=== PATIENT | female | born 1985 | race Caucasian/White ===

== ENCOUNTER 2016-06-05 07:33 | Emergency (ER) | payer BC ==
[~2016-06-05] VITALS: Ht 165.1 cm; Wt 85.8 kg
[~2016-06-05 07:33] MED LIST: ALBU1AER INH; AMOX500T PO; CARV12.52 PO; DUONI NEB; HYDR50TA15 PO; LISI-360 PO; PRED20 PO; SPIR25TA PO
[2016-06-05 07:39] VITALS: BP 115/72; PULSE 90; RESP 18; TEMP 98.7; O2SAT 94
[2016-06-05] MEDS ORDERED: HYDR50TA15 PO (07:48)
[2016-06-05] MEDS ORDERED: ALBU.5I NEB (07:48)
[2016-06-05] MEDS ORDERED: SPIR25TA PO (07:48)
[2016-06-05] MEDS ORDERED: VENTAER INH (07:48)
[2016-06-05] MEDS ORDERED: CARV12.52 PO (07:48)
[2016-06-05] MEDS ORDERED: LISI10TA3 PO (07:48)
--- NOTE | 2016-06-05 08:08 | PD ---
HPI Chief Complaint: Respiratory Symptoms Time Seen by Provider: 07:54 Travel History International Travel<30 days: No Contact w/Intl Traveler<30days: No Traveled to known affect area: No History of Present Illness HPI This is a 31-year-old female with a history of asthma and cardiomyopathy who presents to the emergency department with 3-4 days of increasing shortness of breath and productive cough with yellow sputum, constant , moderate severity, worse in the evenings, associated with some subjective fevers and chills. She has been hospitalized for her asthma in the past. She does take Lasix. She doesn't feel like her lower extremities are more swollen. She's been taking her nebulizers at home but has not been helping. PFSH Past Medical History Asthma: Yes Autoimmune Disease: No Anxiety: No Depression: No Cancer: No Cardiovascular Problems: Yes (chf) High Cholesterol: No Congestive Heart Failure: Yes COPD: No Diabetes: Yes (GESTATIONAL) Diminished Hearing: No Endocrine: No Genitourinary: No Hypertension: Yes ( induced) Immune Disorder: No Musculoskeletal: No Neurologic: No Psychiatric: No Reproductive: No Immunizations Current: Yes Pneumonia: Yes (H/O) Sleep Apnea: No Thyroid Disease: No Influenza Vaccination: No ?: Unknown LMP: 05/11/16 : 1 Para: 0 Miscarriage: 0 : 0 Past Surgical History Abdominal Surgery: No Cardiac Surgery: No Section: Yes Endocrine Surgery: No Eye Surgery: No Genitourinary Surgery: No Gynecologic Surgery: Yes (csection) Pacemaker: No Thoracic Surgery: No Other Surgery: Yes (NASAL SURG- LEFT JAW SURG) Social History Alcohol Use: Yes (RARELY) Tobacco Use: No Substance Use: No Allergies-Medications (Allergen,Severity, Reaction): Coded Allergies: Atarax (Verified Allergy, Severe, HIVES, 06/05/16) Reported Meds & Prescriptions Reported Meds & Active Scripts Active Reported Carvedilol 12.5 Mg Tab 12.5 Mg PO BID Albuterol Neb (Albuterol Sulfate) 2.5 Mg/0.5 Ml Neb 2.5 Mg NEB Q6HR NEB Note: The Albuterol Sulfate Inhalation Solution is concentrated and must be diluted. Read complete instructions carefully before using. Ventolin Hfa 18 GM Inh (Albuterol Sulfate) 90 Mcg/Act Aer 2 Puff INH Q4-6H PRN Spironolactone 25 Mg Tab 25 Mg PO BIDPC Lisinopril 10 Mg Tab 10 Mg PO DAILY Hydralazine (Hydralazine HCl) 50 Mg Tab 50 Mg PO BID Take with a meal Review of Systems Except as stated in HPI: all other systems reviewed are Neg Physical Exam Narrative GENERAL:Well appearing, no acute distress SKIN: Warm and dry. HEAD: Atraumatic. Normocephalic. EYES: Pupils equal and round. No injection or drainage. ENT: Moist mucous membranes NECK: Trachea midline. CARDIOVASCULAR: Regular rate and rhythm. No murmur appreciated. No pitting edema. RESPIRATORY: Expiratory wheezing, worst in the right lower lobe with some crackles, no accessory muscle use, speaking full sentences. GASTROINTESTINAL: Abdomen soft, non-tender, nondistended. MUSCULOSKELETAL: No obvious deformities. NEUROLOGICAL: Awake and alert. No obvious cranial nerve deficits. Moving all extremities. PSYCHIATRIC: Appropriate mood and affect; insight and judgment normal. Data Data Last Documented VS Vital Signs Date Time Temp Pulse Resp B/P Pulse Ox O2 Delivery O2 Flow Rate FiO2 06/05/16 07:52 94 Room Air 06/05/16 07:39 98.7 90 18 115/72 Orders Prednisone (Deltasone) (06/05/16 08:15) Albuterol-Ipratropium Neb (Duoneb Neb) (06/05/16 08:15) Chest, Pa & Lat (06/05/16 ) [facility] Medical Decision Making Medical Screen Exam Complete: Yes Emergency Medical Condition: Yes Interpretation(s) Afebrile, no tachycardia, 94% on room air Chest x-ray: Possible consolidation in the left lower lobe Differential Diagnosis Pneumonia, viral syndrome, bronchitis, acute asthma exacerbation, congestive heart failure exacerbation Narrative Course This is a 31-year-old female who presents to the emergency department with increasing shortness of breath over the past several days with purulent sputum production. She has a history of asthma and congestive heart failure. She has no signs of volume overload on exam. She was given serial bronchodilator treatments and oral prednisone. Chest x-ray was obtained which demonstrates a possible consolidation in the left lower lobe and on my exam I appreciated some Rales on the right. I suspect the patient does have a pneumonia. Patient will be treated empirically with azithromycin, prednisone and continued bronchodilator therapy. I think she is appropriate for outpatient therapy. Diagnosis Primary Impression: Pneumonia Qualified Code: J18.1 - Pneumonia of left lower lobe due to infectious organism Patient Instructions: General Instructions Additional Instructions: If you develop severe shortness of breath, chest pain, or difficulty breathing return to the emergency department. Use albuterol every 4 hours for the next 2 days. Then use as needed for wheezing. Complete your course of steroids. Complete your course of antibiotics. Follow up with your primary care physician in 2-3 days if your symptoms have not improved. Med/Other Pt SpecificInfo: Prescription(s) given Scripts Azithromycin 250 Mg [id number] Mg PO DIRECTED #6 TAB Take 2 tabs (500 mg) on day 1 then 1 tab daily x 4 days. Prov:Odilia Garcia MD 06/05/16 Prednisone 20 Mg Tab40 Mg PO DAILY 4 Days Prov:Odilia Garcia MD 06/05/16 Disposition: 01 DISCHARGE HOME Condition: Stable Odilia Garcia MD Jun 05, 2016 08:08
[2016-06-05] MEDS: RESP: ALBUTEROL 2.5 MG/IPRATROPIUM 0.5 MG NEB (SCH) INH (08:13)
[2016-06-05] MEDS ORDERED: predniSONE 50 MG TAB PO ONE (08:15)
--- NOTE | 2016-06-05 09:08 | RADHPO ---
EXAM DATE/TIME: 06/05/2016 08:16 [facility] COMPARISON: No previous studies available for comparison. INDICATIONS : Short of breath MEDICAL HISTORY : Asthma SURGICAL HISTORY : None. ENCOUNTER: Initial ACUITY: 4 - 6 days PAIN SCORE: 2/10 LOCATION: Bilateral chest FINDINGS: The heart size is normal. There is minimal increased density at the lateral left base. The right lung is grossly clear. No effusion is seen. CONCLUSION: Suspected minimal atelectasis or consolidation of the lateral left lung base. Akhil William MD on June 05, 2016 at 9:05 Board Certified Radiologist. This report was verified electronically.
[2016-06-05] MEDS ORDERED: AZIT250T3 PO (09:14)
[2016-06-05] MEDS ORDERED: PRED20 PO (09:14)
== END 2016-06-05 09:22 | disposition home or self-care (01) ==
LOC: PHED 07:33
DX: J18.9 Pneumonia, unspecified organism (principal); O90.3 Peripartum cardiomyopathy; J45.909 Unspecified asthma, uncomplicated; I50.9 Heart failure, unspecified
CPT/HCPCS: 71020; 94640; 94664; 99284; J7512

== ENCOUNTER 2017-07-01 07:12 | Emergency (ER) | payer BC, OTHER ==
[~2017-07-01] VITALS: Ht 165.1 cm; Wt 91.0 kg
[~2017-07-01 07:12] MED LIST changes: +ALBU.5I NEB; -ALBU1AER INH; -AMOX500T PO; +AZIT250T3 PO; -DUONI NEB; -LISI-360 PO; +LISI10TA3 PO; +VENTAER INH
[2017-07-01 07:15] VITALS: BP 117/71; PULSE 116; RESP 18; TEMP 98.2; O2SAT 96
[2017-07-01 07:30] VITALS: O2SAT 96
[2017-07-01] MEDS ORDERED: methylPREDNISolone SOD SUCC 125 MG/2 ML VIAL IV PUSH ONE (07:30)
[2017-07-01] MEDS ORDERED: SODIUM CHLORIDE 0.9% FLUSH 10 ML FLUSH IVF PRN (07:30)
[2017-07-01] MEDS ORDERED: HYDR-3801 PO (07:37)
--- NOTE | 2017-07-01 07:40 | PD ---
HPI Chief Complaint: Cold / Flu Symptoms Time Seen by Provider: 07:25 Travel History International Travel<30 days: No Contact w/Intl Traveler<30days: No Traveled to known affect area: No History of Present Illness HPI Is 32-year-old female says she's been sick for a couple of days. She has a history of asthma she has had pneumonia in the past. She's been coughing for a couple of days. The last day or so limits been green and thick or short of breath off and on. She does have a history of asthma and uses duo nebs and has a Ventolin inhaler. She was on a Medrol Dosepak about a month ago. She has required steroids in the past for her asthma and has been admitted for asthma. She had a cardiomyopathy with congestive failure about 3 years ago and is on beta blockers but this has apparently been stable PFSH Past Medical History Hx Anticoagulant Therapy: No Asthma: Yes Autoimmune Disease: No Anxiety: No Depression: No Cancer: No Cardiovascular Problems: Yes (HTN, CHF) High Cholesterol: No Congestive Heart Failure: Yes COPD: No Diabetes: No Diminished Hearing: No Endocrine: No Genitourinary: No Hypertension: Yes ( induced) Immune Disorder: No Musculoskeletal: No Neurologic: No Psychiatric: No Reproductive: No Respiratory: Yes (ASTHMA) Immunizations Current: Yes Pneumonia: Yes (H/O) Sleep Apnea: No Thyroid Disease: No ?: Not : 1 Para: 0 Miscarriage: 0 : 0 Past Surgical History Abdominal Surgery: No Cardiac Surgery: No Section: Yes Endocrine Surgery: No Eye Surgery: No Genitourinary Surgery: No Gynecologic Surgery: Yes (csection) Pacemaker: No Thoracic Surgery: No Other Surgery: Yes (NASAL SURG- LEFT JAW SURG) Social History Alcohol Use: Yes (RARELY) Tobacco Use: No Substance Use: No Allergies-Medications (Allergen,Severity, Reaction): Coded Allergies: hydroxyzine (Verified Allergy, Intermediate, Hives, 07/01/17) Reported Meds & Prescriptions Reported Meds & Active Scripts Active Reported Hydralazine (Hydralazine HCl) 100 Mg Tab 50 Mg PO BID Take with meals Carvedilol 12.5 Mg Tab 12.5 Mg PO BID Albuterol Neb (Albuterol Sulfate) 2.5 Mg/0.5 Ml Neb 2.5 Mg NEB Q6HR NEB Note: The Albuterol Sulfate Inhalation Solution is concentrated and must be diluted. Read complete instructions carefully before using. Ventolin Hfa 18 GM Inh (Albuterol Sulfate) 90 Mcg/Act Aer 2 Puff INH Q4-6H PRN Spironolactone 25 Mg Tab 25 Mg PO BIDPC Lisinopril 10 Mg Tab 10 Mg PO DAILY Review of Systems General / Constitutional: Positive: Chills Eyes: No: Diploplia, Blurred Vision HENT: No: Headaches, Vertigo Cardiovascular: No: Chest Pain or Discomfort, Palpitations Respiratory: Positive: Cough, Shortness of Breath Gastrointestinal: No: Vomiting, Diarrhea Genitourinary: No: Urgency, Frequency Musculoskeletal: No: Myalgias, Arthralgias Skin: No Rash, No Itching Neurologic: No: Weakness Hematologic/Lymphatic: No: Easy Bruising Physical Exam Narrative GENERAL: Well-developed female SKIN: Focused skin assessment warm/dry. HEAD: Atraumatic. Normocephalic. EYES: Pupils equal and round. No scleral icterus. No injection or drainage. ENT: No nasal bleeding or discharge. Mucous membranes pink and moist. NECK: Trachea midline. No JVD. CARDIOVASCULAR: Regular rate and rhythm. No murmur appreciated. RESPIRATORY: No accessory muscle use. There are scattered bilateral wheezes. Breath sounds equal bilaterally. GASTROINTESTINAL: Abdomen soft, non-tender, nondistended. Hepatic and splenic margins not palpable. MUSCULOSKELETAL: No obvious deformities. No clubbing. No cyanosis. No edema. NEUROLOGICAL: Awake and alert. No obvious cranial nerve deficits. Motor grossly within normal limits. Normal speech. PSYCHIATRIC: Appropriate mood and affect; insight and judgment normal. Data Data Last Documented VS Vital Signs Date Time Temp Pulse Resp B/P (MAP) Pulse Ox O2 Delivery O2 Flow Rate FiO2 07/01/17 08:30 93 18 106/64 (78) 95 Room Air 07/01/17 07:15 98.2 Orders Orders Complete Blood Count With Diff (07/01/17 07:30) Basic Metabolic Panel (Bmp) (07/01/17 07:30) Iv Access Insert/Monitor (07/01/17 07:30) Oximetry (07/01/17 07:30) Chest, Single Ap (07/01/17 07:30) Sodium Chloride 0.9% Flush (Ns Flush) (07/01/17 07:30) Methylprednisolone So Succ Inj (Solumedr (07/01/17 07:30) Albuterol-Ipratropium Neb (Duoneb Neb) (07/01/17 07:30) Labs Laboratory Tests Test 07/01/17 07:50 White Blood Count 18.3 TH/MM3 Red Blood Count 4.41 MIL/MM3 Hemoglobin 12.6 GM/DL Hematocrit 37.7 % Mean Corpuscular Volume 85.6 FL Mean Corpuscular Hemoglobin 28.6 PG Mean Corpuscular Hemoglobin Concent 33.5 % Red Cell Distribution Width 12.9 % Platelet Count 338 TH/MM3 Mean Platelet Volume 9.4 FL Neutrophils (%) (Auto) 77.1 % Lymphocytes (%) (Auto) 9.0 % Monocytes (%) (Auto) 6.4 % Eosinophils (%) (Auto) 2.8 % Basophils (%) (Auto) 4.7 % Neutrophils # (Auto) 14.1 TH/MM3 Lymphocytes # (Auto) 1.6 TH/MM3 Monocytes # (Auto) 1.2 TH/MM3 Eosinophils # (Auto) 0.5 TH/MM3 Basophils # (Auto) 0.9 TH/MM3 CBC Comment DIFF FINAL Differential Comment Blood Urea Nitrogen 10 MG/DL Creatinine 0.65 MG/DL Random Glucose 107 MG/DL Calcium Level 8.6 MG/DL Sodium Level 136 MEQ/L Potassium Level 4.3 MEQ/L Chloride Level 104 MEQ/L Carbon Dioxide Level 22.4 MEQ/L Anion Gap 10 MEQ/L Estimat Glomerular Filtration Rate 106 ML/MIN [facility] Medical Decision Making Medical Screen Exam Complete: Yes Emergency Medical Condition: Yes Medical Record Reviewed: Yes Differential Diagnosis Differential includes pneumonia, asthma, CHF Narrative Course X-rays negative for pneumonia. White count is elevated and she will be put on antibiotics. She'll also be given a course of steroids. She has been given Solu-Medrol and DuoNeb's ER some improvement. Repeat exam shows improvement in her wheezing she is stable for discharge Diagnosis Primary Impression: Asthma Scripts Prednisone (Prednisone) 20 Mg Tab 20 MG PO DIRECTED, #24 TAB 0 Refills Take 60 MG daily x 4 days, then 40 MG x 4 days, then 20 MG daily x 4 days. Prov: Gabe Banks MD 07/01/17 Amoxicillin (Amoxicillin) 500 Mg Tab 500 MG PO TID for Infection for 7 Days, TAB 0 Refills Prov: Gabe Banks MD 07/01/17 Disposition: 01 DISCHARGE HOME Condition: Stable Gabe Banks MD Jul 01, 2017 07:40
[2017-07-01] MEDS: RESP: ALBUTEROL 2.5 MG/IPRATROPIUM 0.5 MG NEB (SCH) INH ×2 (07:45→07:48)
--- NOTE | 2017-07-01 07:59 | RADRPT ---
EXAM DATE/TIME: 07/01/2017 07:36 [facility] COMPARISON: CHEST SINGLE AP, May 03, 2015, 21:24. INDICATIONS : Short of breath & cough x 3 days MEDICAL HISTORY : Congestive heart failure. Hypertension Asthma. Postpardum cardiomyopathy. SURGICAL HISTORY : section. ENCOUNTER: Initial ACUITY: 3 days PAIN SCORE: 0/10 LOCATION: chest FINDINGS: Lungs are under aerated. Minimal bibasilar peripheral changes and peribronchial thickening. No pneu mothorax. No pleural effusion. The portion of the bony skeleton visualized is unremarkable. CONCLUSION: Under aerated with milder bronchial thickening. Yordan Wilson MD FACR on July 01, 2017 at 7:55 Board Certified Radiologist. This report was verified electronically.
[2017-07-01 08:07] LABS: AUTOMATED NEUTROPHIL # 14.1 TH/MM3 (1.8-7.7); BASOPHIL # 0.9 TH/MM3 (0-0.2); BASOPHIL % 4.7 % (0.0-2.0); EOSINOPHIL # 0.5 TH/MM3 (0-0.4); EOSINOPHIL % 2.8 % (0.0-4.0); HEMATOCRIT 37.7 % (35.0-46.0); HEMOGLOBIN 12.6 GM/DL (11.6-15.3); LYMPHOCYTE # 1.6 TH/MM3 (1.0-4.8); MEAN CELL VOLUME 85.6 FL (80.0-100.0); MEAN CORPUSCULAR HEMOGLOBIN 28.6 PG (27.0-34.0); MEAN CORPUSCULAR HGB CONC 33.5 % (32.0-36.0); MEAN PLATELET VOLUME 9.4 FL (7.0-11.0); MONO % 6.4 % (0.0-8.0); MONOCYTE # 1.2 TH/MM3 (0-0.9); NEUT % 77.1 % (16.0-70.0); PLATELET COUNT 338 TH/MM3 (150-450); RED BLOOD COUNT 4.41 MIL/MM3 (4.00-5.30); RED CELL DISTRIBUTION WIDTH 12.9 % (11.6-17.2); WHITE BLOOD COUNT 18.3 TH/MM3 (4.0-11.0)
[2017-07-01 08:14] LABS: CALCIUM 8.6 MG/DL (8.5-10.1)
[2017-07-01 08:15] LABS: BICARBONATE 22.4 MEQ/L (21.0-32.0)
[2017-07-01 08:18] LABS: CREATININE 0.65 MG/DL (0.50-1.00)
[2017-07-01 08:30] VITALS: BP 106/64; PULSE 93; RESP 18; O2SAT 95
[2017-07-01] MEDS ORDERED: AMOX500T PO (08:55)
[2017-07-01] MEDS ORDERED: PRED20 PO (08:55)
== END 2017-07-01 09:07 | disposition home or self-care (01) ==
LOC: PHED 07:12
DX: J45.909 Unspecified asthma, uncomplicated (principal); I11.0 Hypertensive heart disease with heart failure; I50.9 Heart failure, unspecified
CPT/HCPCS: 71045; 80048; 85025; 94640; 94664; 96374; 99284; J2930